=== PATIENT | female | born 2005 | race Caucasian/White ===

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

== ENCOUNTER 2024-02-29 10:02 | Outpatient (CLI) | payer BC, SELFPAY ==
[2024-02-29 13:26] LABS: Basophils Percent Auto 0.6 % (0.2-1.2); Eosinophils Absolute Auto 0.1 K/mm3 (0-0.3); Eosinophils Percent Auto 1.5 % (0-4.4); Hematocrit 40.9 % (37.0-47.0); Immature Granulocyte Absolute 0.01 K/mm3 (0.00-0.031); Immature Granulocyte Percent A 0.2 % (0-0.5); Lymphocytes Absolute Auto 1.09 K/mm3 (0.9-3.2); Lymphocytes Percent Auto 20.7 % (18.3-44.2); Mean Corpuscular HGB Conc 34.2 g/dl (32-36); Mean Corpuscular Hemoglobin 32.6 pg (26-34); Mean Corpuscular Volume 95.3 fl (80-100); Mean Platelet Volume 9.5 fl (7.4-10.4); Monocytes Absolute Auto 0.4 K/mm3 (0.1-0.6); Monocytes Percent Auto 7.4 % (2.6-8.5); Neutrophils Absolute Auto 3.7 K/mm3 (1.3-6.7); Neutrophils Percent Auto 69.6 % (45.5-73.1); Platelet Count Result 287 k/mm3 (150-375); Red Blood Count 4.29 M/mm3 (4.2-5.4); Red Cell Distribution Width 12.3 % (11.5-14.5); White Blood Count 5.3 K/mm3 (4.5-10.0)
[2024-02-29 14:28] LABS: Alanine Aminotransferase 10 U/L (6-35); Albumin Level 4.6 g/dL (3.7-5.6); Alkaline Phosphatase 69 U/L (45-116); Anion Gap 8 mmol/L (4-12); Aspartate Amino Transferase 44 U/L (14-36); Bilirubin,Total 0.9 mg/dL (0.2-1.3); Blood Urea Nitrogen 11 mg/dL (8-21); Calcium 9.4 mg/dL (8.9-10.7); Carbon Dioxide 31 mmol/L (22-30); Chloride 100 mmol/L (98-107); Cholesterol 143 mg/dL (0-200); Estimated Glomerular Filt Rate > 60; Glucose 89 mg/dL (65-110); HDL Direct 59 mg/dL; Potassium 4.5 mmol/L (3.4-5.0); Sodium 139 mmol/L (134-143); Triglycerides 90 mg/dL (<150)
[2024-02-29 14:41] LABS: LDL Cholesterol Direct 60 mg/dL
[2024-03-07 15:04] LABS: Apolipoprotein B 60 mg/dL
== END 2024-02-29 10:03 | disposition home or self-care (01) ==
LOC: ANHGOSHLAB 10:04
PROVIDERS: PCP Clinical Nurse Specialist; Visit Provider Internal Medicine
DX: Z13.0 Encounter for screening for diseases of the blood and blood-forming organs and certain disorders involving the immune mechanism (principal); Z13.228 Encounter for screening for other metabolic disorders; Z13.29 Encounter for screening for other suspected endocrine disorder; Z83.3 Family history of diabetes mellitus
CPT/HCPCS: 36415; 80053; 80061; 82172; 85025

== ENCOUNTER 2024-02-29 10:32 | Outpatient (CLI) | payer BC, SELFPAY ==
--- NOTE | ~2024-02-29 | XR_ITS ---
3 VIEWS LUMBAR SPINE Ordering provider: ELLEN Hope-C History: . Lbp left side with left leg tingling and numbness no injury . Comparison: None. FINDINGS: VERTEBRAL BODIES: No visible fracture or subluxation. DISK SPACES: Normal. SOFT TISSUES: Normal. IMPRESSION: No acute osseous abnormality lumbar spine. Reviewed, dictated and finalized at location A.
== END 2024-02-29 10:33 | disposition home or self-care (01) ==
PROVIDERS: PCP Clinical Nurse Specialist; Visit Provider Clinical Nurse Specialist
DX: M54.50 Low back pain, unspecified (principal); R20.2 Paresthesia of skin
CPT/HCPCS: 72100